=== PATIENT | male | born 1985 | race Caucasian/White ===

== ENCOUNTER 2022-03-08 22:41 | Emergency (ER) | payer OTHER ==
[2022-03-09] MEDS ORDERED: NAPROSYN500 MG PO (01:15)
[2022-03-09] MEDS ORDERED: METHOCARBAMOL750 M1 PO (01:15)
== END 2022-03-09 02:04 | disposition home or self-care (01) ==
LOC: ED 22:41
DX: M51.26 Other intervertebral disc displacement, lumbar region (principal)